=== PATIENT | female | born 1985 | race Two or more races ===

== ENCOUNTER 2017-11-21 15:38 | Emergency (ER) | payer OTHER ==
[~2017-11-21] VITALS: Ht 165.1 cm; Wt 60.8 kg
== END 2017-11-21 19:58 | disposition home or self-care (01) ==
LOC: ER 15:38 → EDSEX 15:42 → EDBD 15:42 → ER 19:58
DX: N64.4 Mastodynia (principal)

== ENCOUNTER 2017-11-22 11:11 | Outpatient (CLI) | payer OTHER | END 2017-11-22 11:21 | disposition home or self-care (01) | LOC: MAMO-SONO 11:11 | DX: N64.4 Mastodynia (principal); Z12.31 Encounter for screening mammogram for malignant neoplasm of breast ==